=== PATIENT | male | born 1985 | race Caucasian/White ===

== ENCOUNTER → 2016-10-20 | Day surgery (SDC) | payer OTHER ==
[2016-10-18 09:56] VITALS: Ht 180.3 cm; Wt 84.1 kg
[~2016-10-20] VITALS: Ht 180.3 cm; Wt 84.1 kg
[~2016-10-20] MED LIST: ATROPINE SULFATE 0.1 MG/ML 5ML SYR IV PRN; CEFAZOLIN 2000 MG/60 ML D5W IV SCH; DEXAMETHASONE SOD INJ 4 MG/ML VIAL IV PRN; EpHEDrine SULFATE INJ 50 MG/ML AMP IV PRN; FENTANYL CITRATE INJ 50 MCG/1 ML 2 ML VIAL IV PRN; FENTANYL CITRATE INJ 50 MCG/1 ML 2 ML VIAL ONE; HYDR-5688 PO; HYDROCODONE/ACETAMOPHEN 5/325MG TAB PO PRN; KETOROLAC TROMETHAMINE 30 MG/ML VIAL IV. PRN; LABETALOL HCL IV 5 MG/ML 20ML IV PRN; LACTATED RINGER'S 1000ML 1,000 ML IV SCH; LIDOCAINE HCL 2% 2 ML VIAL (20MG/ML) ONE; LIDOCAINE HCL 2% LOCAL 20 ML VIAL ONE; METOCLOPRAMIDE HCL INJ 5 MG/ML 2 ML VIAL IV PRN; MIDAZOLAM HCL 1 MG/ML 2ML VIAL ONE; MoRPHine SULFATE 10 MG/ML CARP/VIAL IV PRN; ONDANSETRON INJ 2 MG/ML 2 ML VIAL IV PRN; ONDANSETRON INJ 2 MG/ML 2 ML VIAL ONE; PHENYLEPHRINE 100MCG/ML 5ML SYR IV PRN; PROPOFOL IV EMULSION 10 MG/ML 20 ML VIAL IV ONE; SODIUM CHLORIDE 0.9% 1000ML 1,000 ML IV SCH
--- NOTE | 2016-10-20 07:00 | History & Physical Bridge - [place] ---
H&P Re-Evaluation Bridge Note: I have examined the patient, reviewed the History & Physical and in the interval since the performance of the History & Physical I have noted the following changes of clinical significance: No changes noted
--- NOTE | 2016-10-20 10:57 | [facility] Post Operative Brief Note ---
Immediate Operative Summary Operative Date Oct 20, 2016. Pre-Operative Diagnosis Right Carpal Tunnel Syndrome Post-Operative Diagnosis same Procedure(s) Performed Right Carpal Tunnel Release Surgeon Dr. Kiesha Salter Platform Attendant Surgeon(s) Stephan Dennis PA-C Estimated Blood Loss 5CC Findings as above Specimens none Complication(s) None Disposition Recovery Room / PACU
[2016-10-20 11:00] VITALS: TEMP 36.9
--- NOTE | 2016-10-20 11:00 | Discharge Instructions-SurgCtr ---
Discharge Instructions Date of Service Oct 20, 2016. Visit Reason for Visit: Right Carpal Tunnel Syndrome Discharge Discharge Diagnosis / Problem: SAME ABOVE Discharge Goals Goal(s): Decrease discomfort, Improve function Activity Recommendations Activity Limitations: as noted below Lifting Limitations: gradually increase as tolerated (MAY LIFT MORE YOU GET CLOSER TO 2 WEEK POST OP. NO HEAVY GRIPPING ) Anesthesia . Post Anesthesia Instructions: If you have had General Anesthesia or IV Sedation: * Do not drive today. * Resume driving when surgeon permits. * Do not make important decisions or sign legal documents today. * Call surgeon for: 1. Temperature elevations greater than 101 degrees F. 2. Uncontrollable pain. 3. Excessive bleeding. 4. Persistent nausea and vomiting. 5. Medication intolerance (nausea, vomiting or rash). * For nausea and vomiting use only clear liquids such as: tea, soda, bouillon until nausea subsides, then gradually increase diet as tolerated. * If you have any concerns or questions, call your surgeon's office. If physician is unavailable and it is an emergency, call 911 or go to the nearest emergency room. . Instructions / Follow-Up Instructions / Follow-Up MEDICATIONS: * Resume previous medications unless instructed otherwise by your surgeon. * Always take pain medication on a full stomach or with food to avoid upset stomach. * Do not drink alcohol or drive while taking narcotics. * Ibuprofen or Tylenol may be taken if narcotic not needed. SPECIAL CARE INSTRUCTIONS: __ None _X_ Keep extremity elevated and iced x 48 hours; apply ice 20-30 minutes 8-10 times/day. May remove at night. __ Sling __24 hrs/day __ Remove at night __ Shoulder Immobilizer __ 24 hrs/day __ Remove at night _X_ Dressing __ Maintain until seen in office, may shower with plastic over site _X_ Remove dressings in5 DAYS. MAY SHOWER SOONER IF COVERED WITH PLASTIC BAG _X_ Cover incisions with band-aids after showering __ Do not remove steri-strips Call physician if chills or temperature rises above 102 degrees or pain unrelieved by prescribed pain medications at . . Diet Recommendations Home Diet: no limitations Fluid Restriction: None Procedures Procedures Performed: Right Carpal Tunnel Release Pending Studies Studies pending at discharge: no Work Instructions Return To Work: 5 days (ONCE DRESSING IS OFF ) Medical Emergencies . Who to Call and When: Medical Emergencies: If at any time you feel your situation is an emergency, please call 911 immediately. . Non-Emergent Contact Non-Emergency issues call your: Primary Care Provider Call Non-Emergent contact if: you have a fever, temperature is above 101.5 . . "Provider Documentation" section prepared by Celso Dennis. .
--- NOTE | 2016-10-20 11:12 | [facility] Operative Report ---
Operative Report Operative Date Oct 20, 2016. Pre-Operative Diagnosis Right Carpal Tunnel Syndrome Post-Operative Diagnosis same Procedure(s) Performed Right Carpal Tunnel Release Surgeon Dr. Kiesha Salter Pantry Worker Surgeon(s) Stephan Dennis PA-C Estimated Blood Loss 5CC Findings as above Specimens none Indications Abhilash is a pleasant 30-year-old male who presented to my office with complaints of chronic left hand pain EMG and clinical diagnosis was diagnostic for carpal tunnel syndrome of the left hand. Extensive Conservative Treatment Elected to Undergo an Open Tunnel Release. Description of Procedure ON 10/20/2016 he arrived at [facility] for the above procedure. He was seen in the preoperative holding area and the operative extremity was identified and signed. He is given a preoperative antibiotic and placed on the table supine position and put under basic sedation. The left wrist was prepped and draped sterile fashion. The surgical site was anesthetized with 10 mL of lidocaine. Vertical incision was made directly over the transverse carpal ligament and dissection was taken down through the palmar fascia. The ligament was exposed. A knife was used to transect the transverse carpal ligament. Complete resection was checked both proximally and distally. The incision was irrigated and closed with 4-0 nylon suture in a mattress fashion. I attest to the content of the Intraoperative Record and any orders documented therein. Any exceptions are noted below.
--- NOTE | 2016-10-20 11:14 | Anesthesia Progress Nt - [facility] ---
Anesthesia Post Op Note Date & Time Oct 20, 2016 at 11:14 Vital Signs Pain Intensity: 0 Vital Signs Past 12 Hours Date Time Temp Pulse Resp B/P (MAP) Pulse Ox O2 Delivery O2 Flow Rate FiO2 10/20/16 11:00 36.9 64 16 131/69 (89) 95 Room Air 10/20/16 09:27 36.7 64 16 130/78 (95) 99 Room Air Notes Mental Status: alert / awake / arousable, participated in evaluation Pt Amnestic to Procedure: Yes Nausea / Vomiting: adequately controlled Pain: adequately controlled Airway Patency, RR, SpO2: stable & adequate BP & HR: stable & adequate Hydration State: stable & adequate Anesthetic Complications: no major complications apparent
[2016-10-20 11:26] VITALS: BP 139/75; PULSE 53; O2SAT 99
--- NOTE | 2016-11-01 14:55 | OPERATIVE REPORT ---
CHIEF COMPLAINT: Carpal tunnel syndrome of the right wrist. POSTOPERATIVE DIAGNOSIS: Same. PROCEDURE: Open right carpal tunnel release. SURGEON: Dr. Isak Salter. TRACK CAR OPERATOR: Stephan Dennis PA-C, whose assistance was necessary for positioning of the hand and helping with instrumentation and retraction. ANESTHESIA: General. COMPLICATIONS: None. CONDITION: Stable to PACU. INDICATIONS: Lalo is a pleasant 30-year-old male who presented to my office with chronic paresthesias in the median nerve distribution of his right hand. Clinical exam and EMG were diagnostic for carpal tunnel syndrome of the right wrist. After failing conservative treatment, he elected to undergo open carpal tunnel release. On October 20, 2016 he arrived at [facility] for the above procedure. He was seen in the preoperative holding area and the operative extremity was identified and signed. He was given a preoperative antibiotic and taken back to the operating room, laid on the table in the supine position and given basic sedation. The right wrist was then prepped and draped in sterile fashion and time-out was done. The patient and the operative extremity was properly identified. The surgical site was anesthetized with Lidocaine. A longitudinal incision was made directly over the transverse carpal ligament. Dissection was taken down through the palmar fascia and the ligament was exposed. A knife and tenotomy scissors were used to completely transect the transverse carpal ligament. Complete transection was checked both proximally and distally. The wound was then irrigated and closed with 4-0 nylon suture in a mattress fashion. He was placed in a soft dressing and taken to the postanesthesia care unit in stable condition. He tolerated the procedure well.
== END | disposition home or self-care (01) ==
LOC: X.SURG 09:16
PROVIDERS: ATTEND Orthopaedic Surgery
DX: G56.01 Carpal tunnel syndrome, right upper limb (principal); Z98.890 Other specified postprocedural states; Z83.3 Family history of diabetes mellitus